=== PATIENT | male | born 1980 ===

== ENCOUNTER 2022-08-13 12:45 | Emergency (ER) | payer SELFPAY ==
--- NOTE | 2022-08-13 13:15 | ED ---
General Adult HPI - General Chief complaint: Alcohol Stated complaint: SOB Time Seen by Provider: 08/13/22 13:08 Source: patient, RN notes reviewed, old records reviewed Mode of arrival: EMS Limitations: no limitations - History of Present Illness Initial comments: 42-year-old male presenting from [place] for evaluation of anxiety and an episode of dyspnea. Patient states he was checking into rehab for alcohol abuse and states he became somewhat anxious. He states that his symptoms lasted several minutes but then resolved when his anxiety resolved. He denies chest pain. He denies any complaints time my evaluation. He does admit to alcohol consumption today and states that he would preferred to go back to rehab. He is not suicidal or homicidal. He is alert and oriented at the time my evaluation. - Related Data Allergies Allergy/AdvReac Type Severity Reaction Status Date / Time No Known Allergies Allergy Verified 08/13/22 13:04 Review of Systems ROS Statement: Those systems with pertinent positive or pertinent negative responses have been documented in the HPI. ROS Other: All systems not noted in ROS Statement are negative. Past Medical History Past Medical History: No Reported History Past Surgical History: No Surgical Hx Reported Past Psychological History: Anxiety, Depression Smoking Status: Current every day smoker Past Alcohol Use History: Abuse, Daily, Heavy Past Drug Use History: None Reported General Exam Limitations: no limitations General appearance: alert, in no apparent distress, appears intoxicated Head exam: Present: atraumatic, normocephalic Eye exam: Present: normal appearance ENT exam: Present: normal exam Neck exam: Present: normal inspection. Absent: tenderness, meningismus Respiratory exam: Present: rhonchi. Absent: respiratory distress, wheezes Cardiovascular Exam: Present: regular rate, normal rhythm GI/Abdominal exam: Present: soft. Absent: distended, tenderness, guarding Extremities exam: Present: normal inspection, normal capillary refill Neurological exam: Present: alert, oriented X3, CN II-XII intact, normal gait. Absent: motor sensory deficit Psychiatric exam: Present: normal affect, normal mood. Absent: suicidal ideation Skin exam: Present: warm, dry, intact Course Vital Signs 08/13/22 08/13/22 12:55 13:09 Temperature 97.8 F Pulse Rate 104 H Respiratory 18 18 Rate Blood Pressure 144/102 O2 Sat by Pulse 98 Oximetry - Reevaluation(s) Reevaluation #1: 08/13/22 13:43 Patient clinical sober, his plan is to take a cab back to [place]. Medical Decision Making - Medical Decision Making Was pt. sent in by a medical professional or institution (LORRI Teresa, SITE SAFETY MANAGER, urgent care, hospital, or halfway...) When possible be specific @ -[No] Did you speak to anyone other than the patient for history (EMS, parent, family, police, friend...)? What history was obtained from this source @ -[Paramedics] Did you review nursing and triage notes (agree or disagree)? Why? @ -[I reviewed and agree with nursing and triage notes] Were old charts reviewed (outside hosp., previous admission, EMS record, old EKG, old radiological studies, urgent care reports/EKG's, halfway records)? Report findings @ -[No old charts were reviewed] Differential Diagnosis (chest pain, altered mental status, abdominal pain women, abdominal pain men, vaginal bleeding, weakness, fever, dyspnea, syncope, headache, dizziness, GI bleed, back pain, seizure, CVA, palpatations, mental health, musculoskeletal)? @ -[Differential Dyspnea: Coronary syndrome, arrhythmia, tamponade, asthma, COPD, pulmonary embolism, pne umonia, pneumothorax, pulmonary effusion, anaphylaxis, diabetic ketoacidosis, flailed chest, pulmonary contusion, diaphragmatic rupture, anemia, neuromuscular, this is not meant to be an all-inclusive list. ] EKG interpreted by me (3pts min.). @ -[As above] X-rays interpreted by me (1pt min.). @ -[None done] CT interpreted by me (1pt min.). @ -[None done] U/S interpreted by me (1pt. min.). @ -[None done] What testing was considered but not performed or refused? (CT, X-rays, U/S, labs)? Why? @ -[I considered x-ray, laboratory testing, EKG, patient declines stating his symptoms were completely resolved What meds were considered but not given or refused? Why? @ -[None] Did you discuss the management of the patient with other professionals (yusra edwards i.e. LORRI Teresa, SITE SAFETY MANAGER, lab, RT, psych nurse, manager social responsibility, garden equipment mechanic, teacher, head correction officer, block and case maker)? Give summary @ -[No] Was smoking cessation discussed for >3mins.? @ -[No] Was critical care preformed (if so, how long)? @ -[No] Were there social determinants of health that impacted care today? How? (Homelessness, low income, unemployed, alcoholism, drug addiction, transportation, low edu. Level, literacy, decrease access to med. care, retirement, rehab)? @ -[Alcoholism. Was there de-escalation of care discussed even if they declined (Discuss DNR or withdrawal of care, Hospice)? DNR status @ -[No] What co-morbidities impacted this encounter? (DM, HTN, Smoking, COPD, CAD, Cancer, CVA, ARF, Chemo, Hep., AIDS, mental health diagnosis, sleep apnea, morbid obesity)? @ -[None] Was patient admitted / discharged? Hospital course, mention meds given and route, prescriptions, significant lab abnormalities, going to OR and other pertinent info. @ -[50-year-old male with an episode of dyspnea related to his anxiety. Patient does not want testing but does want to return to [place]. Vital signs are stable. He has some scattered rhonchi which are related to tobacco use, there is no fever. No hypoxia. Undiagnosed new problem with uncertain prognosis? @ -[No] Drug Therapy requiring intensive monitoring for toxicity (Heparin, Nitro, Insulin, Cardizem)? @ -[No] Were any procedures done? @ -[No] Diagnosis/symptom? @ -[Dyspnea Acute, or Chronic, or Acute on Chronic? @ -[Acute and resolved Uncomplicated (without systemic symptoms) or Complicated (systemic symptoms)? @ -[default] Side effects of treatment? @ -[No] Exacerbation, Progression, or Severe Exacerbation? @ -[No] Poses a threat to life or bodily function? How? (Chest pain, [place], DC, pneumonia, PE, COPD, DKA, ARF, appy, cholecystitis, CVA, Diverticulitis, Homicidal, Suicidal, threat to staff... and all critical care pts) @ -Low-risk Disposition Clinical Impression: Alcoholic intoxication, Dyspnea Disposition: HOME SELF-CARE Condition: Fair Instructions (If sedation given, give patient instructions): Alcohol Intoxication (ED), Dyspnea (ED) Additional Instructions: Please feel free to return to emergency department at any point with any new or worsening concerns. Is patient prescribed a controlled substance at d/c from ED?: No Referrals: None,Stated [Primary Care Provider] - 1-2 days Time of Disposition: 13:15
[2022-08-13 16:00] VITALS: BP 123/79; PULSE 78; RESP 16; TEMP 98.9
== END 2022-08-13 16:02 | disposition home or self-care (01) ==
LOC: EC 12:45
DX: F10.129 Alcohol abuse with intoxication, unspecified (principal); R06.00 Dyspnea, unspecified; F17.200 Nicotine dependence, unspecified, uncomplicated; Z86.59 Personal history of other mental and behavioral disorders
CPT/HCPCS: 82075; 99284